=== PATIENT | female | born 1940 | race Caucasian/White ===

== ENCOUNTER → 2020-12-28 | Outpatient (CLI) | payer MEDICARE ==
[2020-12-28 12:50] LABS: CALCIUM LEVEL 9.6 MG/DL (8.8-10.2)
== END ==
LOC: M LAB 11:18
PROVIDERS: ATTEND Internal Medicine Endocrinology, Diabetes & Metabolism
DX: M81.0 Age-related osteoporosis without current pathological fracture (principal)